=== PATIENT | female | born 1970 | race African-American/Black ===

== ENCOUNTER 2023-05-02 18:48 | Emergency (ER) | payer SELFPAY ==
[2023-05-02 18:52] VITALS: BP 138/96; PULSE 118; RESP 18; TEMP 36.7; O2SAT 95; BMI 32.5
--- NOTE | 2023-05-02 19:12 | ED.BACK1 ---
HPI - Back Pain/Injury General Chief Complaint: Back Pain/Injury Stated Complaint: BACK PAIN Time Seen by Provider: 05/02/23 18:58 Source: patient Mode of arrival: walk-in History of Present Illness HPI Narrative: Patient is a 52-year-old female who presents to the emergency department for the evaluation of back spasms over the last several days. She has a history of chronic back pain, she states she has been on tizanidine for over 20 years. She states she ran out of it 4 days ago and called her specialist for a refill but due to the holiday was not able to get the refill of this medication. She denies any new injuries, traumas. She has a history of chronic neuropathy but has no new or worsening peripheral paresthesias. She reports pain in the lumbar spine as well as in the shoulders and neck, she states this is consistent with previous muscle spasms that she has had. Related Data Previous Rx's Medication Instructions Recorded naproxen sodium 550 mg tablet 550 mg PO BID PRN pain #10 tabs 05/02/23 tizanidine 4 mg capsule 4 mg PO Q8H PRN muscle spasm #20 05/02/23 caps Allergies Allergy/AdvReac Type Severity Reaction Status Date / Time codeine Allergy Severe Verified 05/02/23 18:58 morphine Allergy Severe Verified 05/02/23 18:58 Penicillins Allergy Severe Verified 05/02/23 18:58 Review of Systems ROS Constitutional Denies: fever or chills Ears, nose, mouth, and throat Denies: throat pain Cardiovascular Denies: chest pain Gastrointestinal Denies: abdominal pain, nausea or vomiting Musculoskeletal Reports: back pain and neck pain Integumentary/Breast Denies: rash Neurological Denies: headache Endocrine Denies: excessive urination Hematologic/Lymphatic Denies: easy bruising Exam Narrative Exam Narrative: Gen.: Awake, alert, in no distress Head: Normocephalic, atraumatic ENT: Moist mucous membranes Respiratory: No respiratory distress Back: Diffuse tenderness of the lumbar spine and paraspinal muscles with no bony point tenderness of the C-spine, T-spine or L-spine. No obvious deformity or step-off. Extremities: Moves extremities equally, no injuries noted Psych: Normal mood and affect Neuro: No focal neuro deficit Skin: Warm, dry, intact Constitutional Vital Signs, click to edit/add: Last Vital Signs Temp 98.1 F 05/02/23 18:52 Pulse 118 H 05/02/23 18:52 Resp 18 05/02/23 18:52 BP 138/96 H 05/02/23 18:52 Pulse Ox 95 05/02/23 18:52 O2 Del Method Room Air 05/02/23 18:52 Course Vital Signs Vital signs: Vital Signs Temperature 98.1 F 05/02/23 18:52 Pulse Rate 118 H 05/02/23 18:52 Respiratory Rate 18 05/02/23 18:52 Blood Pressure 138/96 H 05/02/23 18:52 Pulse Oximetry 95 05/02/23 18:52 Oxygen Delivery Method Room Air 05/02/23 18:52 Temperature 98.1 F 05/02/23 18:52 Pulse Rate 118 H 05/02/23 18:52 Respiratory Rate 18 05/02/23 18:52 Blood Pressure 138/96 H 05/02/23 18:52 Pulse Oximetry 95 05/02/23 18:52 Oxygen Delivery Method Room Air 05/02/23 18:52 MDM - Back Pain/Injury MDM Narrative Medical decision making narrative: Patient with no new focal medical complaints, heart rate rechecked prior to discharge with improvement of tachycardia. She has no focal neuro deficits in the ER. She is given a refill of her tizanidine, we do not have this medication in house so she was given Skelaxin and Toradol to take at home as she drove herself to the ER. Follow-up with PCP and return to the ER if symptoms change or worsen Medical Records Attestation: I reviewed the patient's medical records. Discharge Plan Discharge Chief Complaint: Back Pain/Injury Clinical Impression: Back spasm, Lumbar back pain Patient Disposition: Home, Self-Care Time of Disposition Decision: 19:09 Condition: Good Prescriptions / Home Meds: New tizanidine 4 mg capsule 4 mg PO Q8H PRN (Reason: muscle spasm) Qty: 20 0RF Rx Instructions: do not exceed 3 doses per 24 hrs naproxen sodium 550 mg tablet 550 mg PO BID PRN (Reason: pain) Qty: 10 0RF Instructions: Acute Low Back Pain (ED), Muscle Spasm (ED) Stand Alone Forms: Portal Instructions Referrals: Physician,Non-Staff, MD [Primary Care Provider] - 1 week
[2023-05-02] MEDS: KETOROLAC TROMETHAMINE 10 MG TABLET PO (19:43)
[2023-05-02] MEDS: TIZANIDINE HCL 4 MG TABLET 8 MG PO (19:44)
== END 2023-05-02 19:48 | disposition home or self-care (01) ==
PROVIDERS: Emergency Provider Emergency Medicine
DX: M62.830 Muscle spasm of back (principal); M54.50 Low back pain, unspecified; G89.29 Other chronic pain; G62.89 Other specified polyneuropathies; Z79.899 Other long term (current) drug therapy
CPT/HCPCS: 99283

== ENCOUNTER 2024-02-12 09:17 | Emergency (ER) | payer OTHER, SELFPAY ==
[2024-02-12 09:23] VITALS: BP 156/88; PULSE 89; TEMP 36.8; O2SAT 97; BMI 35.4
--- NOTE | 2024-02-12 09:53 | ED.GENADUL1 ---
HPI HPI - General Adult General Stated complaint: JOINT PAIN, VOMITING, POSSIBLE FOOD POISON Time Seen by Provider: 02/12/24 09:38 Source: patient Mode of arrival: walk-in Limitations: no limitations History of Present Illness HPI narrative: Patient presents with Several different complaints. She describes onset of vomiting and diarrhea several days ago. She associated it with eating some [place] food. However she describes the timeframe that does not suggest food poisoning. She said within an hour of eating she went home and started getting sick. Then she had diarrhea the next day. She has not run a fever that she is aware of. She has not seen any blood in the stool. She has not had any travel history. She has not had any use of antibiotics recently. She says now her joints are starting to ache. She had a primary care doctor who worked her up for autoimmune diseases several years ago and all those testing were negative. She says she has irritable bowel syndrome but no inflammatory bowel disease that she is aware of. Has not had a colonoscopy. When I ask her which joints are bothering her she said both her elbows her wrists and knees. She says she has been told she has osteoarthritis after that previous workup. She has not seen a rheumatology doctor. She is out of all her medications. She says occasionally she takes ibuprofen but it did not seem to work. She is out of her muscle relaxants. She is looking for a new family doctor. Related Data Home Medications ?Medication ?Instructions ?Recorded ?Confirmed [id number] 1 tab PO DAILY 02/12/24 02/12/24 50 mg-325 mg-40 mg tablet trazodone 100 mg tablet 100 mg PO DAILY 02/12/24 02/12/24 Previous Rx's ?Medication ?Instructions ?Recorded naproxen sodium 550 mg tablet 550 mg PO BID PRN pain #10 tabs 05/02/23 tizanidine 4 mg capsule 4 mg PO Q8H PRN muscle spasm #20 05/02/23 caps Allergies Allergy/AdvReac Type Severity Reaction Status Date / Time codeine Allergy Severe Vomiting Verified 02/12/24 09:29 morphine Allergy Severe Hives Verified 02/12/24 09:29 Penicillins Allergy Severe Anaphylaxis Verified 02/12/24 09:29 Opioid HPI Opioid Management Most Recent Opioid Data: Last Pain Scale 8 02/12/24 09:59 PFSH PFSH Social History Little interest or pleasure in doing things: not at all Feeling down, depressed, or hopeless: not at all Exam Narrative Exam Narrative: Awake alert pleasant does not appear an extremis. Vital signs able. Prescription monitoring program was evaluated in his normal report. Examining her joints of the wrist elbow ankles shoulders there is no acute arthritis warmth erythema or skin tenderness over these areas. Her abdomen is soft and supple there is no guarding rebound rigidity or peritoneal findings. Skin and integument shows good perfusion with no evidence of tenting of the skin or dehydration. Good pulses are noted. Constitutional Vital Signs, click to edit/add: Last Vital Signs Temp 98.2 F 02/12/24 09:23 Pulse 89 02/12/24 09:23 Resp 18 02/12/24 09:23 BP 156/88 H 02/12/24 09:23 Pulse Ox 97 02/12/24 09:23 O2 Del Method Room Air 02/12/24 09:23 Course Vital Signs Vital signs: Vital Signs Temperature 98.2 F 02/12/24 09:23 Pulse Rate 89 02/12/24 09:23 Respiratory Rate 18 02/12/24 09:23 Blood Pressure 156/88 H 02/12/24 09:23 Pulse Oximetry 97 02/12/24 09:23 Oxygen Delivery Method Room Air 02/12/24 09:23 Temperature 98.2 F 02/12/24 09:23 Pulse Rate 89 02/12/24 09:23 Respiratory Rate 18 02/12/24 09:23 Blood Pressure 156/88 H 02/12/24 09:23 Pulse Oximetry 97 02/12/24 09:23 Oxygen Delivery Method Room Air 02/12/24 09:23 Medical Decision Making MDM Narrative Medical decision making narrative: Screening laboratory testing was done and lieu of her history of some diarrhea. Her kidney function is normal as is her CBC. Her CRP is very modestly elevated. These were all results will be shared with her and given her a copy for her to follow-up with her primary care doctor. It would be acceptable to use gentle and low doses of [id number] Imodium for the ongoing diarrhea. She has no history of C. difficile. I will give her a prescription for NSAIDs Discharge Plan Discharge Stand Alone Forms: Work/School Release, Portal Instructions Chief Complaint: Back Pain/Injury Clinical Impression: Osteoarthritis Patient Disposition: Home, Self-Care Time of Disposition Decision: 11:10 Prescriptions / Home Meds: No Action tizanidine 4 mg capsule 4 mg PO Q8H PRN (Reason: muscle spasm) Qty: 20 0RF Rx Instructions: do not exceed 3 doses per 24 hrs naproxen sodium 550 mg tablet 550 mg PO BID PRN (Reason: pain) Qty: 10 0RF [id number] 50-325-40 mg tablet 1 tab PO DAILY trazodone 100 mg tablet 100 mg PO DAILY Print Language: [place] Additional Instructions: Refill for meloxicam and tizanidine/follow-up with local primary care as needed Referrals: Physician,Non-Staff, MD [Primary Care Provider] - 1 week
[2024-02-12 10:29] LABS: Basophils Percent Auto 0.6 % (0.2-2.0); Eosinophils Absolute Auto 0.1 10^3/uL (0.0-0.7); Eosinophils Percent Auto 2.6 % (0.9-7.0); Hematocrit 39.9 % (36.0-48.0); Hemoglobin 12.6 g/dL (12.0-16.0); Immature Granulocytes Abs Auto 0.01 10^3/uL (0.00-0.03); Immature Granulocytes Pct Auto 0.2 % (0.0-0.5); Lymphocytes Percent Auto 39.7 % (20.5-60.0); Mean Corpuscular HGB Conc 31.6 g/dL (29.9-35.2); Mean Corpuscular Hemoglobin 25.1 pg (26.7-34.0); Mean Corpuscular Volume 79.6 fL (81.0-99.0); Mean Platelet Volume 10.3 fL (9.5-13.5); Monocytes Absolute Auto 0.4 10^3/uL (0.3-0.8); Monocytes Percent Auto 7.5 % (1.7-12.0); Neutrophils Absolute Auto 2.5 10^3/uL (1.4-6.5); Neutrophils Percent Auto 49.4 % (43.0-75.0); Platelet Count 257 10^3/uL (150-450); Red Blood Count 5.01 10^6/uL (4.20-5.40); Red Cell Distribution Width 15.9 % (11.0-15.0); White Blood Count 5.1 10^3/uL (4.0-11.0)
[2024-02-12 10:30] VITALS: BP 139/81; PULSE 81; O2SAT 97
[2024-02-12 10:41] LABS: Alanine Aminotransferase 30 U/L (14-59); Albumin Level 3.8 g/dL (3.4-5.0); Alkaline Phosphatase 87 U/L (46-116); Anion Gap 11.5; Aspartate Amino Transferase 13 U/L (15-37); BUN Creatinine Ratio 21.8; Bilirubin Total 0.2 mg/dL (0.2-1.0); C Reactive Protein 0.92 mg/dL (<=0.50); Calcium 9.5 mg/dL (8.5-10.1); Chloride 99 mmol/L (98-107); Estimated GFR (African America >60 (>=60); Estimated GFR (Non-African Ame >60 (>=60); Globulin 3.9 g/dL; Glucose 79 mg/dL (74-106); Potassium 3.5 mmol/L (3.5-5.1); Sodium 139 mmol/L (136-145); Total Protein 7.7 g/dL (6.4-8.2)
[2024-02-12 10:49] LABS: TSH W/ REFLEX FT4 1.376 uIU/mL (0.358-3.740)
== END 2024-02-12 11:18 | disposition home or self-care (01) ==
PROVIDERS: Emergency Provider Emergency Medicine Emergency Medical Services
DX: M19.90 Unspecified osteoarthritis, unspecified site (principal)
CPT/HCPCS: 36415; 80053; 84443; 85025; 86140; 99283

== ENCOUNTER 2024-07-21 18:58 | Emergency (ER) | payer OTHER, SELFPAY ==
--- OUTSIDE RECORDS SUMMARY | 2024-07-21 19:05 | XMS_ITS | CCD ---
Author Organization [facility] Care Team Providers Care Merchandise Executive Name Role Phone RAFAEL CALLAWAY Unavailable Unavailable TINJAG NUGENT Unavailable Unavailable NILTONRAFAEL Alexander S Unavailable Unavailable HAYDAR KEO Unavailable Unavailable ROSEANN SUN Admitting Unavailable SELF, REFERRED Referring Unavailable WALTON, REUBEN Primary Care Unavailable AVEL DEE Attending Unavailable Walton Tee MONTILLA Primary Care Provider WALTON, TEE Referring Unavailable WALTON, TEE Primary Care Unavailable SARANYA STAPLES Attending Unavailable SARANYA STAPLES Referring Unavailable WALTON, TEE Primary Care Unavailable WALTON, TEE Attending Unavailable WALTON, TEE Referring Unavailable WALTON, TEE Primary Care Unavailable WALTON, TEE Attending Unavailable WALTON, TEE Referring Unavailable WALTON, TEE Primary Care Unavailable Allergies Allergy Classification Reported Allergen(s) Allergy Type Date of Onset Reaction(s) Facility Opioid Agonists (2 sources) Codeine; Translations: [CODEINE] Drug Allergy 6 [facility] Penicillins (antibiotic) (2 sources) Penicillins; Translations: [PENICILLINS] Drug Allergy 6 [facility] (1 source) Acetaminophen / Propoxyphene; Translations: [Unknown] Drug Allergy 0 [facility] (1 source) Codeine Drug Allergy 9 [facility] (1 source) Codeine Drug Allergy 9 [facility] (2 sources) Meclizine; Translations: [MORPHINE] Drug Allergy 9 [facility] (2 sources) Penicillins; Translations: [PENICILLINS] Drug allergy (disorder) 9 [facility] (4 sources) Codeine; Translations: [CODEINE] Drug Allergy 6 Vomiting [facility] (4 sources) Dicloxacillin; Translations: [DICLOXACILLIN SODIUM] Drug Allergy 6 [facility] (3 sources) Morphine Drug Allergy 6 Hives [facility] (3 sources) Penicillins Propensity to adverse reactions to drug 6 Anaphylaxis [facility] Medications Current Medications Medication Drug Class(es) Dates Sig (Normalized) Sig (Original) acetaminophen 325 mg / butalbital 50 mg / caffeine 40 mg oral tablet (4 sources) Barbiturate, Central Nervous System Stimulant, Methylxanthine Start: 12-16-2023 End: 04-20-2024 take 1 tablet by mouth once in the morning butalbital-acetam inophen-caff (FIORICET, ESGIC) 50-325-40 mg per tablet Indications: Migraine with aura and without status migrainosus, not intractable Take 1 tablet by mouth in the morning. 30 tablet 2 04/20/2024 Active Start: 02-03-2023 take 1 tablet by mathieu once in the morning [id number]-gvookuknpejnm-uwed (FIORICET, ESGIC) 50-325-40 mg per tablet TAKE 1 TABLET BY MOUTH IN THE MORNING 30 tablet 2 02/03/2023 Active [id number] 200 actuat albuterol 0.09 mg/actuat metered dose inhaler (3 sources) beta2-Adrenergic Agonist Start: 12-16-2023 take 1 puff(s) by inhalation every six hours as needed for wheezing albuterol (PROVENTIL HFA;VENTOLIN HFA) 90 mcg/actuation inhaler Indications: Mild intermittent asthma without complication Inhale 1 puff every 6 (six) hours as needed for wheezing. 18 g 12/16/2023 Active Start: 03-09-2023 take 2 puff(s) by mo uth every four hours as needed for wheezing albuterol (PROVENTIL HFA;VENTOLIN HFA) 90 mcg/actuation inhaler Indications: Mild intermittent asthma without complication INHALE 2 PUFFS BY MOUTH EVERY 4 HOURS NEEDED FOR WHEEZING 18 g 0 03/09/2023 Active chlorthalidone 25 mg oral tablet (3 sources) Thiazide-like Diuretic Start: 12-16-2023 take 1 tablet by mouth once daily chlorthalidone (HYGROTON) 25 mg tablet Indications: Essential hypertension , Fibromyalgia , Chronic bilateral low back pain with bilateral sciatica Take 1 tablet (25 mg total) by mouth daily. 90 tablet 3 12/16/2023 Active Start: 01-08-2023 take 1 tablet by mathieu th once daily chlorthalidone (HYGROTON) 25 mg tablet Indications: Essential hypertension , Fibromyalgia , Chronic bilateral low back pain with bilateral sciatica Take 1 tablet (25 mg total) by mouth daily. 90 tablet 3 01/08/2023 Active fluticasone propionate 0.05 mg/actuat metered dose nasal spray (3 sources) Corticosteroid Start: 07-07-2022 take 1 spray(s) nasal route in the morning fluticasone propionate (FLONASE) 50 mcg/actuation nasal spray Administer 1 spray into each nostril in the morning. 16 g 07/07/2022 Active ibuprofen 800 mg oral tablet (3 sources) Nonsteroidal Anti-inflammatory Drug Start: 03-19-2022 take 1 tablet by mouth three times daily ibuprofen (MOTRIN) 800 mg tablet Take 1 tablet (800 mg total) by mouth 3 (three) times a day. 21 tablet 03/19/2022 Active levocetirizine dihydrochloride 5 mg oral tablet (2 sources) Histamine-1 Receptor Antagonist Start: 04-20-2024 take 1 tablet by mouth once daily levocetirizine (XYZAL) 5 mg tablet Take 1 tablet (5 mg total) by mouth nightly. 30 tablet 04/20/2024 Active meclizine hydrochloride 25 mg oral tablet (1 source) Antiemetic Start: 07-07-2022 take 1 tablet by mouth three times daily as needed for dizziness meclizine (ANTIVERT) 25 mg tablet Take 1 tablet (25 mg total) by mouth 3 (three) times a day as needed for dizziness. 20 tablet 0 07/07/2022 Active rizatriptan 10 mg oral tablet (1 source) Serotonin-1b and Serotonin-1d Receptor Agonist Start: 10-20-2019 take 1 tablet by mouth once as needed rizatriptan (MAXALT) 10 mg tablet Indications: Migraine with aura and without status migrainosus, not intractable Take 1 tablet (10 mg total) by mouth once as needed for migraine for up to 1 dose. May repeat in 2 hours if unresolved. Do not exceed 30 mg in 24 hours. 9 tablet 2 10/20/2019 Active tiZANidine 4 mg oral tablet (4 sources) Central alpha-2 Adrenergic Agonist Start: 06-04-2024 take 1 tablet by mouth every eight hours as needed for muscle spasms tiZANidine (ZANAFLEX) 4 mg tablet Indications: Fibromyalgia Take 1 tablet (4 mg total) by mouth every 8 (eight) hours as needed for muscle spasms. 90 tablet 2 06/04/2024 Active Start: 02-12-2024 End: 06-03-2024 take 1 tablet by mouth every eight hours as needed for muscle spasms tiZANidine (ZANAFLEX) 4 mg tablet Indications: Fibromyalgia Take 1 tablet (4 mg total) by mouth every 8 (eight) hours as needed for muscle spasms. 90 tablet 2 02/12/2024 06/03/2024 Discontinued (Reorder) Start: 04-29-2023 take 1 tablet by mathieu th every eight hours as needed for muscle spasms tiZANidine (ZANAFLEX) 4 mg tablet Indications: Fibromyalgia Take 1 tablet (4 mg total) by mouth every 8 (eight) hours as needed for muscle spasms. 90 tablet 3 04/29/2023 Active traZODone hydrochloride 100 mg oral tablet (7 sources) Serotonin Reuptake Inhibitor Start: 07-27-2023 End: 04-20-2024 traZODone (DESYREL) 100 mg tablet TAKE ONE HALF TABLET BY MOUTH EVERY EVENING 90 tablet 2 04/20/2024 Active Start: 01-08-2023 End: 07-24-2023 traZODone (DESYREL) 100 mg t ablet TAKE ONE HALF TABLET BY MOUTH EVERY EVENING 90 tablet 1 07/24/2023 07/24/2023 Discontinued Completed/Discontinued Medications Medication Drug Class(es) Dates Sig (Normalized) Sig (Original) doxycycline monohydrate 100 mg oral capsule (3 sources) Tetracycline-cla ss Drug Start: 04-20-2024 End: 04-30-2024 take 1 capsule by mouth in the morning, then take 1 capsule by mouth at bedtime doxycycline (MONODOX) 100 mg capsule Take 1 capsule (100 mg total) by mouth in the morning and 1 capsule (100 mg total) before bedtime. Do all this for 10 days. 20 capsule 04/20/2024 04/20/2024 Discontinued Problems Active Problems Problem Classification Problem Date Documented Da te Episodic/Chronic Anxiety disorders (7 sources) Generalized anxiety disorder; Translations: [Generalized anxiety disorder] Onset: 0 10-20-2019 Chronic Asthma (5 sources) Exacerbation of moderate persistent asthma; Translations: [Moderate persistent asthma with (acute) exacerbation] Onset: 6 01-15-2018 Chronic Esophageal disorders (3 sources) Gastroesophageal reflux disease; Translations: [Gastro-esophageal reflux disease without esophagitis] Onset: 6 08-07-2015 Chronic Essential hypertension (8 sources) Essential hypertension; Translations: [Essential (primary) hypertension] Onset: 6 Resolved: 6 09-10-2015 Chronic Fever of unknown origin (1 source) Fever Onset: 4 Episodic Headache; including migraine (11 sources) Migraine with aura; Translations: [Migraine with aura, not intractable, without status migrainosus] Onset: 6 Resolved: 0 10-20-2019 Chronic Nutritional deficiencies (1 source) Vitamin D deficiency, unspecified; Translations: [Vitamin D deficiency, unspecified] Onset: 4 Chronic Open wounds of extremities (1 source) Puncture wound without foreign body, left foot, initial encounter; Translations: [Puncture wound without foreign body, left foot, initial encounter] Onset: 4 Episodic Osteoarthritis (3 sources) Generalized arthritis; Translations: [Unspecified osteoarthritis, unspecified site] Onset: 6 01-20-2017 Chronic Other connective tissue disease (4 sources) Fibromyalgia; Translations: [Fibromyalgia] Onset: 6 08-07-2015 Episodic Other connective tissue disease (1 source) Calcaneal spur, left foot; Translations: [Calcaneal spur, left foot] Onset: 4 Episodic Other gastrointestinal disorders (3 sources) Irritable bowel syndrome; Translations: [Irritable bowel syndrome without diarrhea] Onset: 6 08-07-2015 Chronic Other inflammatory condition of skin (3 sources) Rosacea; Translations: [Rosacea, unspecified] Onset: 6 03-11-2016 Chronic Other lower respiratory disease (1 source) Cough Onset: 4 Episodic Other nervous system disorders (1 source) Other chronic pain; Translations: [Other chronic pain] Onset: 8 Chronic Other nervous system disorders (3 sources) Peripheral neuropathic pain; Translations: [Unspecified mononeuropathy of bilateral lower limbs] Onset: 7 01-20-2017 Chronic Other nervous system disorders (3 sources) Neuropathy of upper limb; Translations: [Unspecified mononeuropathy of unspecified upper limb] Onset: 7 01-20-2017 Chronic Other nervous system disorders (1 source) Unspecified mononeuropathy of bilateral lower limbs; Translations: [Unspecified mononeuropathy of bilateral lower limbs] Onset: 7 Chronic Other nutritional; endocrine; and metabolic disorders (1 source) Obesity caused by energy imbalance; Translations: [Other obesity due to excess calories] Onset: 1 01-14-2021 Chronic Other nutritional; endocrine; and metabolic disorders (2 sources) Severe obesity; Translations: [Class 2 severe obesity due to excess calories with serious comorbidity and body mass index (BMI) of 35.0 to 35.9 in adult] Onset: 1 09-29-2023 Chronic Other upper respiratory disease (3 sources) Allergic rhinitis; Translations: [Allergic rhinitis, unspecified] Onset: 6 08-07-2015 Chronic Other upper respiratory disease (1 source) Other specified disorders of nose and nasal sinuses; Translations: [Other specified disorders of nose and nasal sinuses] Onset: 8 Episodic Other upper respiratory disease (1 source) Pain in throat Onset: 4 Episodic Other upper respiratory infections (2 sources) Acute pharyngitis, unspecified; Translations: [Acute maxillary sinusitis] Onset: 8 05-07-2024 Episodic Unclassified (1 source) Other specified disorders of teeth and supporting structures; Translations: [Other specified disorders of teeth and supporting structures] Onset: 8 Unclassified (1 source) Nail in Heel Onset: 4 Unclassified (1 source) Earache Onset: 4 Past or Other Problems Problem Classification Problem Date Documented Da te Episodic/Chronic Mood disorders (3 sources) Mood disorders Onset: 02-20-2023 Resolved: 09-29-2023 02-20-2023 Nonspecific chest pain (3 sources) Atypical chest pain; Translations: [Other chest pain] Onset: 01-15-2018 Resolved: 05-21-2018 05-21-2018 Episodic Other connective tissue disease (3 sources) Impingement syndrome of right shoulder region; Translations: [Impingement syndrome of right shoulder] Onset: 11-16-2017 11-16-2017 Episodic Other nervous system disorders (3 sources) H/O: migraine; Translations: [Personal history of other diseases of the nervous system and sense organs] Onset: 08-07-2015 Resolved: 09-10-2015 09-10-2015 Episodic Other screening for suspected conditions (not mental disorders or infectious disease) (5 sources) Patient encounter status; Translations: [Encounter for screening mammogram for malignant neoplasm of breast] Onset: 08-09-2015 05-18-2017 Episodic Spondylosis; intervertebral disc disorders; other back problems (11 sources) Lumbago with sciatica, unspecified side; Translations: [Spinal stenosis] Onset: 08-07-2015 08-07-2015 Episodic Sprains and strains (3 sources) Strain of muscle(s) and tendon(s) of the rotator cuff of right shoulder, initial encounter; Translations: [Rotator cuff (capsule) sprain] Onset: 08-18-2022 08-18-2022 Episodic Syncope (3 sources) Syncope; Translations: [Syncope and collapse] Onset: 01-02-2018 01-02-2018 Episodic Unclassified (3 sources) Onset: 08-18-2022 08-18-2022 Results Test Name Value Interpretation Reference Range Facility XR FOOT LT MIN 3 VWSon 11-23 XR FOOT LT MIN 3 VWS XR FOOT LT MIN 3 VW S HISTORY: A 53-year-old female with the history of the stepped on nail one week ago. Complaining of the pain to the left heel. TECHNIQUE: Left foot: 3 views COMPARISON: No relevant prior studies are available for comparison. FINDINGS: There is no evidence of fracture or acute bony pathology. No dislocation is identified. Joints are intact. There is a calcaneal enthesophyte. No radiopaque foreign body is identified. IMPRESSION: * No evidence of fracture, radiopaque foreign body or acute bony pathology in the left foot. * Calcaneal enthesophyte. Finalized by Johnny Walton MD on 11/24/2023 4:16 PM Normal [facility] BASIC METABOLIC PANELon 11-06 Anion gap [Moles/Vol] 7 mmol/L Normal - [facility] Comment on above: Performed By: #### L [id number] #### [place] [address] [place] [phone] BASIC METABOLIC PANEL Normal [facility] Comment on above: Result Comment: Rele ase to patient->Immediate Performed By: #### L [id number] #### [facility] [facility] [address] [place] [phone] Calcium [Mass/Vol] 10.1 mg/dL Normal 8.6-10.2 [facility] Comment on above: Performed By: #### L AB15 #### [place] [id number] [place] [phone] Chloride [Moles/Vol] 102 mmol/L Normal 98-107 [facility] Comment on above: Performed By: #### L AB15 #### [place] [id number] [phone] CO2 [Moles/Vol] 30 mmol/L Normal 21-31 [facility] Comment on above: Performed By: #### L AB15 #### [address] [place] [address] Creatinine [Mass/Vol] 0.9 mg/dL Normal 0.6-1.2 [facility] Comment on above: Performed By: #### L AB15 #### [place] [address] [place] [address] GFR MDRD NON AF AMER >60 Normal >60 [facility] Comment on above: Result Comment: GFR is estimated using creatinine, age, gender, and race. Patient's values should be interpreted as a trend. For additional information: [email or web address] Performed By: #### L AB15 #### [place] [facility] [address] [place] [address] GFR/1.73 sq M.predicted among blacks MDRD (S/P/Bld) [Vol rate/Area] mL/min/{1.73_m2} Normal >60 [facility] Comment on above: Result Comment: GFR is estimated using creatinine, age, gender, and race. Patient's values should be interpreted as a trend. For additional information: [email or web address] Performed By: #### L AB15 #### [place] [address] [place] [address] Glucose [Mass/Vol] 84 mg/dL Normal 74-109 [facility] Comment on above: Performed By: #### L AB15 #### [place] [address] [place] [address] [place] [address] Potassium [Moles/Vol] 3.9 mmol/L Normal 3.5-5.3 [facility] Comment on above: Performed By: #### L AB15 #### [place] [address] [place] [phone] Sodium [Moles/Vol] 139 mmol/L Normal 136-145 [facility] Comment on above: Performed By: #### L AB15 #### [place] [address] [place] [phone] Urea nitrogen [Mass/Vol] 20 mg/dL Normal 7-25 [facility] Comment on above: Performed By: #### L AB15 #### [place] [address] [place] [address] CBC W/DIFFon 11-22-2020 BASOPHILS ABS AUTO 0.1 K/uL Normal 0.0-0.1 [facility] Comment on above: Performed By: #### L [id number] #### [place] [address] [place] [address] Basophils/100 WBC (Bld) 1.1 % Normal [facility] Comment on above: Performed By: #### L [id number] #### [place] [address] [place] [phone] CBC W/DIFF Normal [facility] Comment on above: Result Comment: Rele ase to patient->Immediate Performed By: #### L [id number] #### [place] [address] [place] [phone] Eosinophils (Bld) [#/Vol] 0.2 10*3/uL Normal 0.0-0.4 [facility] Comment on above: Performed By: #### L [id number] #### [place] [address] [place] [phone] Eosinophils/100 WBC (Bld) 2.9 % Normal [facility] Comment on above: Performed By: #### L [id number] #### [place] [address] [place] [phone] Erythrocyte distribution width (RBC) [Ratio] 15.1 % Normal 11.7-15.2 [facility] Comment on above: Performed By: #### L [id number] #### [place] [address] [place] [phone] Hematocrit (Bld) [Volume fraction] 37.0 % Normal 35.8-46.5 [facility] Comment on above: Performed By: #### L [id number] #### [place] [address] [place] [phone] Hemoglobin (Bld) [Mass/Vol] 12.2 g/dL Normal 12.1-15.8 [facility] Comment on above: Performed By: #### L [id number] #### [place] [address] [place] [address] Lymphocytes (Bld) [#/Vol] 2.0 10*3/uL Normal 0.8-3.6 [facility] Comment on above: Performed By: #### L [id number] #### [place] [address] [place] [phone] Lymphocytes/100 WBC (Bld) 37.6 % Normal [facility] Comment on above: Performed By: #### L [id number] #### [place] [address] [place] [address] MCH (RBC) [Entitic mass] 25.7 pg Abnormal 28.4-33.4 [facility] Comment on above: Performed By: #### L [id number] #### [place] [address] [place] [address] MCHC (RBC) [Mass/Vol] 33.1 g/dL Normal 31.1-37.0 [facility] Comment on above: Performed By: #### L [id number] #### [place] [address] [place] [address] MCV (RBC) [Entitic vol] 77.6 fL Abnormal 85.0-99.0 [facility] Comment on above: Performed By: #### L [id number] #### [place] [address] [place] [address] Monocytes (Bld) [#/Vol] 0.3 10*3/uL Normal 0.3-0.9 [facility] Comment on above: Performed By: #### L [id number] #### [place] [address] [place] [phone] Monocytes/100 WBC (Bld) 6.4 % Normal [facility] Comment on above: Performed By: #### L [id number] #### [place] [address] [place] [phone] NEUTROPHIL ABS AUTO 2.8 K/uL Normal 2.0-7.3 [facility] Comment on above: Performed By: #### L [id number] #### [place] [address] [place] [phone] Neutrophils/100 WBC (Bld) 52.0 % Normal [facility] Comment on above: Performed By: #### L [id number] #### [place] [address] [place] [phone] Platelets (Bld) [#/Vol] 264 10*3/uL Normal 154-393 [facility] Comment on above: Performed By: #### L [id number] #### [place] [address] [place] [address] RBC (Bld) [#/Vol] 4.77 10*6/uL Normal 3.86-5.17 [facility] Comment on above: Performed By: #### L [id number] #### [place] [id number] [phone] WBC (Bld) [#/Vol] 5.4 10*3/uL Normal 4.0-10.5 [facility] Comment on above: Performed By: #### L [id number] #### [place] [address] [place] [phone] ED Provider Noteson 11-23-19 21 ED Provider Notes Encounter Department : [facility]: EMER[facility] ED Provider Notes by Gilson Squires MD at 11/22/2020 2:18 PM Author: SHARON Leervice: Emergency MedicineAuthor Type: ED Physician Filed: 11/22/2020 4:02 PMDate of Service: 11/22/2020 2:18 PMStatus: Signed Offal Baler: Gilson Squires MD (ED Physician) CHIEF COMPLAINT History given by: Patient, chart review, nursing staff History limited by: None Chief Complaint Patient presents with -Chest Pain -Shortness of Breath -Eye Pain YOUSUF Kelly Mccarthy is a 50 y.o. female with possible history of asthma, fibromyalgia, mitral prolapse who presents July with complaint of chest pain. Patient is about 10 AM she was driving in her car just leaving a job interview when she started to feel some pain behind her right eye as well as chest pain. Chest pain is sternal, aching, nonradiating. Mild shortness of breath. Pain is more of a headache located behind the right eye. Denies pain with moving the eye. Denies eye drainage. Denies blurry vision. Does not think she had a stress test. Pain in her right eye slightly better than previous. Has not taken anything for it. Chest pain is about the same. Is also noticed a little bit of lower extremity edema for the last 3 days. Nothing seems to make her symptoms better or worse. Denies nausea vomiting or diaphoresis REVIEW OF SYSTEMS Constitutional: No fever or chills. Eye: No visual changes HENT: No ear pain or sore throat. Positive for pain behind the right eye Resp: Positive shortness of breath Cardio: Positive for chest pain GI: No abdominal pain, nausea, vomiting, constipation or diarrhea. : No dysuria, urgency or frequency. Musculoskeletal: No new muscle aches or joint pain. Positive lower extremity edema Neuro: Positive for headache Skin: No rash. PAST MEDICAL HISTORY Past Medical History: DiagnosisDate -Asthma -Disc disease, degenerative, lumbar or lumbosacral -Fibromyalgia -Mitral prolapse -Osteoarthritis FAMILY HISTORY No family history on file. SOCIAL HISTORY Social History Socioeconomic History -Marital status: Spouse name:None -Number of children:None -Years of education:None -Highest education level:None Occupational History -None Tobacco Use -Smoking status:Never Smoker -Smokeless tobacco:Never Used Substance and Sexual Activity -Alcohol use:Never -Drug use:Never -Sexual activity:None Other TopicsConcern -None Social History Narrative -None Social Determinants of Health Financial Resource Strain: -Difficulty of Paying Living Expenses: Food Insecurity: -Worried About Running Out of Food in the Last Year: -Ran Out of Food in the Last Year: Transportation Needs: -Lack of Transportation (Medical): -Lack of Transportation (Non-Medical): Physical Activity: -Days of Exercise per Week: -Minutes of Exercise per Session: Stress: -Feeling of Stress : Social Connections: -Frequency of Communication with Friends and Family: -Frequency of Social Gatherings with Friends and Family: -Attends [employer] Services: -Active Member of Clubs or Organizations: -Attends Club or Organization Meetings: -Marital Status: Intimate Partner Violence: -Fear of Current or Ex-Partner: -Emotionally Abused: -Physically Abused: -Sexually Abused: SURGICAL HISTORY Past Surgical History: ProcedureLateralityDat e -CHOLECYSTECTOMY -HYSTERECTOMY CURRENT MEDICATIONS Outpatient Medications Marked as Taking for the 11/22/20 encounter (Hospital Encounter) MedicationSigDispenseR efill -hydroCHLOROthiazide (HYDRODIURIL) 25 mg tabletTake 25 mg by mouth daily. -meloxicam (MOBIC) 15 mg tabletTake 15 mg by mouth daily. -sulfamethoxazole-trim ethoprim (SULFATRIM) 200-40 mg/5 mL suspensionTake 20 mLs by mouth 2 times a day. dose in mg based on trimethoprim content -tiZANidine (ZANAFLEX) 4 mg tabletTake 4 mg by mouth every 6 hours as needed for Muscle spasms. -traZODone (DESYREL) 100 mg tabletTake 100 mg by mouth at bedtime. ALLERGIES Allergies AllergenReactions -PenicillinsAnaphylaxi s -CodeineGI Upset -Opioids - Morphine AnaloguesHives PHYSICAL EXAM VITAL SIGNS: ED Triage Vitals [11/22/20 1158] BP150/74 Temp98.4 ?F (36.9 ?C) Pulse74 Resp15 [id number] % [id number] lb (81.6 kg) Joyce Coma Scale Score15 BMI (Calculated)32 Constitutional: Well developed, Well nourished, mild distress. HENT: Normocephalic, Atraumatic, Bilateral external ears normal, Oropharynx moist, No oral exudates, Nose normal without discharge. Eyes: PERRL, EOMI, Conjunctiva normal, No discharge. No scleral icterus. Neck: Normal range of motion, No tenderness, Supple. Lymphatic: No lymphadenopathy noted. Cardiovascular: Normal heart rate, Normal rhythm, No murmurs, rubs or gallops. Thorax AND Lungs: Normal breath sounds, No respiratory distress. No use of accessory muscles. Abdomen: Soft, non-tender, non- (more content not included)... Normal [facility] EKG STANDARD 12 LEADon 11-22 EKG STANDARD 12 LEAD HEART RATE= 82 bpm RR Interval= 728 ms P-R Interval= 163 ms QRSD Interval= 81 ms QT Interval= 389 ms QTcB= 456 ms QRS Bromide= 20 deg T Wave Bromide= 42 deg REPORT= - BORDERLINE ECG - REPORT= Sinus rhythm REPORT= Probable left atrial enlargement INTERPRETING PHYS= Confirmed by: Gilson Squires) 22-Nov-2020 14:18:20 Study Date/Time= Date and Time of Study: 2020-11-22 12:11:21 Normal [facility] TROPONIN Ion 11-22-2020 TROPONIN I Normal [facility] Comment on above: Result Comment: Rele ase to patient->Immediate Performed By: #### L [id number] #### [place] [address] Troponin I.cardiac [Mass/Vol] ng/mL Normal <0.040 [facility] Comment on above: Result Comment: Due to new chemistry methodology at some [facility] labs, please re-baseline this test for any patients being transferred from a different location. Performed By: #### L [id number] #### [place] [address] XR-CHEST PORTABLE Aida XR-CHEST PORTABLE STAT EXAMINATION: XR-CHEST PORTABLE STAT DATE OF EXAM: 11/22/2020 2:18 PM DEMOGRAPHICS: 50 years old Female INDICATION: Chest Pain History: Chest pains and swelling. Number of Series/Images: 1. COMPARISON: No existing relevant imaging study corresponding to the same anatomical region is available. TECHNIQUE: Single AP portable chest radiograph was obtained. FINDINGS: Cardiomediastinal silhouette and pulmonary vasculature are within normal limits. Mild right basilar atelectatic changes. Remainder of the visualized lungs are clear and well-aerated. The costophrenic angles are sharp. There is no evidence of a pleural effusion or pneumothorax. There is no acute osseous abnormality. IMPRESSION: IMPRESSION: 1. No acute cardiopulmonary disease This dictation was created with voice recognition software. While attempts have been made to review the dictation as it is transcribed, on occasion the spoken word can be misinterpreted by the technology leading to omissions or inappropriate words, phrases or sentences. Electronically Signed by: Lissa Dallas, 11/22/2020 2:20 PM Normal [facility] ALCOHOLon 03-04-2020 Ethanol [Mass/Vol] NONE DETECTED Normal [facility] Comment on above: Result Comment: Divi de by 1000 to convert mg/dL to percent. Example: 100mg/dL = 0.1%. Performed By: #### 2 0621 #### [facility] [address] [place] [address], [place] CBC W/DIFFon 03-04-2020 ABS BASOPHILS 0.0 10*3/uL Normal 0.0-0.2 [facility] Comment on above: Performed By: #### 5 0103 #### [facility] [address] [facility] [place] [address], [place] ABS IMM GRANS 0.0 10*3/uL Normal 0.0-0.2 [facility] Comment on above: Performed By: #### 5 0103 #### [facility] [address] [place] [address], [place] ABS NEUTROPHILS 3.1 10*3/uL Normal 1.6-7.6 [facility] Comment on above: Performed By: #### 5 0103 #### [facility] [address] [facility] [place] [address], [place] Basophils/100 WBC (Bld) 0.5 % Normal 0.0-1.0 [facility] Comment on above: Performed By: #### 5 0103 #### [facility] [address] [place] [address], [place] Eosinophils (Bld) [#/Vol] 0.2 10*3/uL Normal 0.0-0.5 [facility] Comment on above: Performed By: #### 5 0103 #### [facility] [address] [facility] [place] [address], [place] Eosinophils/100 WBC (Bld) 2.4 % Normal 0.0-6.0 [facility] Comment on above: Performed By: #### 5 0103 #### [facility] [address] [place] [address], [place] Erythrocyte distribution width (RBC) [Ratio] 14.9 % Normal 11.5-15.0 [facility] Comment on above: Performed By: #### 5 0103 #### [facility] [address] [place] [address], [place] Hematocrit (Bld) [Volume fraction] 31.4 % Low 36.0-45.0 [facility] Comment on above: Performed By: #### 5 3 #### [facility] [address] [facility] [place] [address], [place] Hemoglobin (Bld) [Mass/Vol] 10.1 g/dL Low 12.0-15.0 [facility] Comment on above: Performed By: #### 5 3 #### [facility] [address] [facility] [place] [address], [place] IMMATURE GRANS 0.5 % Normal 0.0-1.0 [facility] Comment on above: Performed By: #### 5 3 #### [facility] [address] [facility] [place] [address], [place] Lymphocytes (Bld) [#/Vol] 2.4 10*3/uL Normal 1.2-4.0 [facility] Comment on above: Performed By: #### 5 3 #### [facility] [address] [facility] [place] [address], [place] Lymphocytes/100 WBC (Bld) 38.9 % Normal 20.0-45.0 [facility] Comment on above: Performed By: #### 5 0103 #### [facility] [address] [facility] [place] [address], [place] MCH (RBC) [Entitic mass] 25.5 pg Low 27.0-33.0 [facility] Comment on above: Performed By: #### 5 3 #### [facility] [address] [place] [address], [place] MCHC (RBC) [Mass/Vol] 32.2 g/dL Normal 32.0-35.0 [facility] Comment on above: Performed By: #### 3 #### [facility] [address] [facility] [place] [address], [place] MCV (RBC) [Entitic vol] 79.3 fL Low 82.0-98.0 [facility] Comment on above: Performed By: #### 102 #### [facility] [address] [place] [address], [place] Monocytes (Bld) [#/Vol] 0.5 10*3/uL Normal 0.1-1.0 [facility] Comment on above: Performed By: #### 102 #### [facility] [address] [place] [address], [place] MONOS 7.3 % Normal 5.0-12.0 [facility] Comment on above: Performed By: #### 102 #### [facility] [address] Neutrophils/100 WBC (Bld) 50.4 % Normal 40.0-72.0 [facility] Comment on above: Performed By: #### 102 #### [facility] [address] Nucleated RBC/100 WBC (Bld) [Ratio] 0 % Normal 0-0 [facility] Comment on above: Performed By: #### 102 #### [facility] [address] [place] [address], [place] PLAT CNT 234 10*3/uL Normal 150-400 [facility] Comment on above: Performed By: #### 102 #### [facility] [address] [place] [address], [place] RBC (Bld) [#/Vol] 3.96 10*6/uL Normal 3.80-5.00 [facility] Comment on above: Performed By: #### 102 #### [facility] [address] [facility] WBC (Bld) [#/Vol] 6.14 10*3/uL Normal 4.00-10.60 [facility] Comment on above: Performed By: #### 5 0103 #### [facility] [address] [facility] [place] [address], [place] COMP METABOLIC PANELon 03-04 Albumin [Mass/Vol] 3.7 g/dL Normal 3.5-5.7 The [facility] Comment on above: Performed By: #### 0 0121, 84556 #### [facility] [address] [place] [address], [place] ALKALINE PHOSPH 59 IU/L Normal 34-104 The [facility] Comment on above: Performed By: #### 0 0121, 07165 #### [facility] [address] [facility] ALT [Catalytic activity/Vol] 12 U/L Normal 7-52 [facility] Comment on above: Performed By: #### 0 0121, 96485 #### [facility] [address] AST [Catalytic activity/Vol] 15 U/L Normal 13-39 [facility] Comment on above: Performed By: #### 0 0121, 86427 #### [facility] [address] [place] [address], [place] Bilirubin [Mass/Vol] 0.2 mg/dL Low 0.3-1.0 [facility] Comment on above: Performed By: #### 0 0121, 72209 #### [facility] [address] [place] [address], [place] Calcium [Mass/Vol] 8.8 mg/dL Normal 8.6-10.3 [facility] Comment on above: Performed By: #### 0 0121, 08196 #### [facility] [address] [place] [address], [place] Chloride [Moles/Vol] 105 mmol/L Normal 98-107 [facility] Comment on above: Performed By: #### 0 0121, 15322 #### [facility] [address] [place] [address], [place] CO2 [Moles/Vol] 26 mmol/L Normal 21-31 [facility] Comment on above: Performed By: #### 0 0121, 64075 #### [facility] [address] [place] [address], [place] Creatinine [Mass/Vol] 1.36 mg/dL High 0.60-1.20 [facility] Comment on above: Performed By: #### 0 0121, 18668 #### [facility] [address] [place] [address], [place] GFR/1.73 sq M predicted among blacks MDRD (S/P/Bld) [Vol rate/Area] 50 ml/min/1.73sq m Abnormal >60 [facility] Comment on above: Performed By: #### 0 0121, 18279 #### [facility] [address] [place] [address], [place] GFR/1.73 sq M predicted among non-blacks MDRD (S/P/Bld) [Vol rate/Area] 41 ml/min/1.73sq m Abnormal >60 [facility] Comment on above: Performed By: #### 0 0121, 03007 #### [facility] [address] [place] [address], [place] Glucose [Mass/Vol] 111 mg/dL High 70-100 [facility] Comment on above: Performed By: #### 0 0121, 37401 #### [facility] [address] [place] [address], [place] Potassium [Moles/Vol] 3.0 mmol/L Low 3.5-5.1 [facility] Comment on above: Performed By: #### 0 0121, 32237 #### [facility] [address] [place] [address], [place] Protein [Mass/Vol] 6.2 g/dL Normal 6.0-8.3 [facility] Comment on above: Performed By: #### 0 0121, 40835 #### [facility] [address] [place] [address], [place] Sodium [Moles/Vol] 139 mmol/L Normal 136-145 [facility] Comment on above: Performed By: #### 0 0121, 26385 #### [facility] [address] [place] [address], [place] Urea nitrogen [Mass/Vol] 24 mg/dL Normal 7-25 [facility] Comment on above: Performed By: #### 0 0121, 09536 #### [facility] [address] [place] [address], [place] ED TOX PANEL URINEon 020 50 THC Negative Normal NEGATIVE [facility] Comment on above: Performed By: #### 3 1763 #### [facility] [address] [place] [address], [place] BARBITURATES Negative Normal NEGATIVE The [facility] Comment on above: Performed By: #### 3 1763 #### [facility] [address] [place] [address], [place] Benzodiazepines Ql (U) Negative Normal NEGATIVE [facility] Comment on above: Performed By: #### 3 1763 #### [facility] [address] [place] [address], [place] Cocaine Ql (U) Negative Normal NEGATIVE [facility] Comment on above: Performed By: #### 3 1763 #### [facility] [address] [facility] [place] [address], [place] Methadone Ql (U) Negative Normal NEGATIVE [facility] Comment on above: Performed By: #### 3 1763 #### [facility] [address] [place] [address], [place] MONO AMPHET Negative Normal NEGATIVE [facility] Comment on above: Performed By: #### 3 1763 #### [facility] [address] [facility] [place] [address], [place] Opiates Ql (U) Negative Normal NEGATIVE [facility] Comment on above: Performed By: #### 3 1763 #### [facility] [address] [place] [address], [place] Phencyclidine Ql (U) Negative Normal NEGATIVE [facility] Comment on above: Performed By: #### 3 1763 #### [facility] [address] [place] [address], [place] PROPOXYPHENE Negative Normal NEGATIVE [facility] Comment on above: Performed By: #### 3 1763 #### [facility] [address] [place] [address], [place] TRICYCLICS Negative Normal NEGATIVE [facility] Comment on above: Performed By: #### 3 1763 #### [facility] [address] [place] [address], [place] PORTABLE CHEST 1 VIEWon 02-07 PORTABLE CHEST 1 VIEW [facility] Department of Radiology [address] [place] [id number] ======== Patient Name: SHARI FRASER : 1970 Sex: F Age: Race: Black Pt. Location: [facility] Patient Status: E Ordered Date: 03/04/2020 1:00:00 AM Completed Date: 03/04/2020 01:39 AM Requesting Provider: AVEL DEE Attending Provider: ROSEANN SUN Report Copy To: Signs & Symptoms: Chest Pain History: See Comments Comments: evaluate for Cardiomegaly Exam: PORTABLE CHEST 1 VIEW ======== PORTABLE CHEST 1 VIEW 03/04/2020 1:39 AM CLINICAL INDICATIONS: Chest Pain TECHNOLOGIST COMMENTS: patient c/o intermittent chest pain QUESTION FOR THE RADIOLOGIST: evaluate for Cardiomegaly PROTOCOL: AP(PA) view was obtained. COMPARISON: Chest x-ray on 11/15/2011 FINDINGS: Portable AP upright view of the chest was performed. Cardiac silhouette is within normal limits. Mild vascular congestion. Low lung volumes. No significant airspace consolidation, pleural effusion or pneumothorax. IMPRESSION: Mild vascular congestion. Electronically signed: Ryder Guerrier. Transcribed by: [email or web address], User Resident: Electronically Signed by: RYDER GUERRIER @ 03/04/2020 01:49 AM Normal [facility] Comment on above: Order Comment: evalu ate for Cardiomegaly TROPONIN-Ion 03-04-2020 Troponin I.cardiac [Mass/Vol] 0.00 ng/mL Normal 0.00-0.04 [facility] Comment on above: Result Comment: REFE RENCE RANGES: 0.00 - 0.14 ng/ml NEGATIVE 0.15 - 0.25 ng/ml INDETERMINATE > 0.25 ng/ml INDICATIVE OF AN M.I. Performed By: #### 3 5200 #### [place] [address] [place] [address], [place] Troponin I.cardiac [Mass/Vol] 0.01 ng/mL Normal 0.00-0.04 [facility] Comment on above: Result Comment: REFE RENCE RANGES: 0.00 - 0.04 ng/ml NORMAL 0.05 - 0.50 ng/ml INDETERMINATE > 0.50 ng/ml CONSISTENT WITH AN M.I. Performed By: #### 0 0121, 68799 #### [facility] [address] Vital Signs Date Time Vital Sign Value Performing Clinician Facility 04-20-2024 10:36-0500 Body mass index (BMI) [Ratio] 35.88 kg/m2 Tee Walton MD Work Phone: [facility] 04-20-2024 10:36-0500 Body temperature 98.29 [degF] Tee Walton MD Work Phone: [facility] 04-20-2024 10:36-0500 Body weight 91.17 kg Tee Walton MD Work Phone: [facility] 04-20-2024 10:36-0500 Diastolic blood pressure 92 mm[Hg] Tee Walton MD Work Phone: [facility] 04-20-2024 10:36-0500 Respiratory rate 21 /min Tee aWlton MD Work Phone: [facility] 04-20-2024 10:36-0500 SaO2% (BldA) [Mass fraction] 98 % Tee Walton MD Work Phone: [facility] 04-20-2024 10:36-0500 Systolic blood pressure 144 mm[Hg] Tee Walton MD Work Phone: [facility] Encounters Encounter Date Encounter Type Care Provider Facility Start: 06-03-2024 End: 06-04-2024 Refill Kirstin Wiggins [facility] [place] [facility] Comment on above: Fibromyalgia Start: 04-20-2024 End: 04-20-2024 Office outpatient visit 15 minutes Tee Walton MD Work Phone: [facility] [place] [facility] Comment on above: Migraine with aura a nd without status migrainosus, not intractable (Primary Dx); Acute non-recurrent maxillary sinusitis; Moderate persistent asthma without complication; Essential hypertension; Chronic bilateral low back pain with bilateral sciatica Start: 04-20-2024 End: 04-20-2024 ambulatory [facility] Start: 11-24-2023 End: 11-24-2023 ambulatory [facility] Start: 09-29-2023 End: 09-29-2023 ambulatory [facility] Start: 09-29-2023 Encounter for genera l adult medical examination without abnormal findings [facility] Start: 07-23-2023 Refill Kirstin Wiggins [facility] [place] [facility] Start: 03-04-2020 End: 03-04-2020 Emergency department patient visit ROSEANN Nj CORINNE Facility:[facility] Start: 02-06-2018 End: 02-06-2018 Emergency department patient visit [facility] Start: 10-20-2017 End: 10-20-2017 Emergency department patient visit [facility] Start: 03-11-2016 End: 01-14-2021 Patient encounter status Kirstin Wiggins [facility] Procedures Date Procedure Procedure Detail Performing Clinician Start: 09-29-2023 Follow-up visit Follow-up TEE BURNS Start: 09-29-2023 Adult depression scr eening assessment Tee Walton MD Work Phone: Start: 02-20-2023 Adult depression scr eening assessment Kirstin Wiggins CMA Start: 02-12-2018 Mammography Kirstin dewitt CMA Plan of Treatment Date Care Activity Detail Author Start: 11-23-2033 DTaP,Tdap and Td Vaccines (3 - Td or Tdap) DTaP,Tdap and Td Vaccines (3 - Td or Tdap) [facility] Start: 04-20-2025 Adult BMI Screening Adult BMI Screening [facility] Start: 04-20-2025 Tobacco Screening Tobacco Screening [facility] Start: 09-28-2024 Depression Screening Depression Screening [facility] Start: 06-13-2024 End: 06-13-2024 Patient encounter procedure 06/13/2024 1:00 PM EST Office Visit [facility] [place] [facility] [address] [facility] [place] [id number] [place] [address] [place] [address], [address] [place] [address] [facility] [place] [facility] Start: 03-23-2024 Tobacco Screening Tobacco Screening [facility] Start: 02-21-2024 Adult BMI Screening Adult BMI Screening [facility] Start: 02-21-2024 Depression Screening Depression Screening [facility] Start: 02-07-2024 Influenza vaccination Influenza Vaccine [facility] Start: 08-21-2023 End: 08-21-2023 Patient encounter procedure 08/21/2023 11:30 AM EDT Office Visit [facility] [place] [facility] [address] [facility] [place] [id number] Tee Walton MD [address] [facility], [address] [place] [address] [facility] [place] [facility] Start: 08-19-2023 Adult BMI Follow Up Plan Adult BMI Follow Up Plan [facility] Start: 02-06-2023 Influenza vaccination Influenza Vaccine [facility] Start: 10-08-2022 DTaP,Tdap and Td Vaccines (2 - Td or Tdap) DTaP,Tdap and Td Vaccines (2 - Td or Tdap) [facility] Start: 09-22-2019 Administration of varicella zoster vaccine Zoster (Shingles) Vaccine (1 of 2) [facility] Start: 02-12-2019 Screening for malignant neoplasm of breast Mammogram [facility] Immunizations Immunization Date Immunization Notes Care Provider Fa cility 11-24-2023 tetanus toxoid, redu inés diphtheria toxoid, and acellular pertussis vaccine, adsorbed Tee Walton MD Work Phone: [facility] 10-08-2012 tetanus toxoid, redu inés diphtheria toxoid, and acellular pertussis vaccine, adsorbed Kirstin Wiggins [facility] Payers Date Payer Category Payer Private Health Insurance [facility] [id number] 2023 Unknown [id number] 2018 Unknown [id number] 2018 Private Health Insurance [id number] 2017 Unknown [id number] 2014 Unknown [id number] 2010 Self-pay [id number] 1970 Unknown [id number] 1970 Unknown [id number] 1970 Unknown [id number] 1970 Unknown [id number] 1970 Unknown [id number] Social History Date Type Detail Facility Start: 02-20-2023 Tobacco smoking stat [facility] Ex-smoker [facility] History of tobacco use Current smoker [facility] Start: 02-20-2023 Tobacco use and exposure Smokeless tobacco non-user [facility] Start: 03-23-2023 End: 04-20-2024 Alcohol intake Current non-drinker of alcohol (finding) [facility] Start: 06-19-2020 End: 03-23-2023 History of Social function [facility] Start: 06-19-2020 End: 03-23-2023 Tobacco use panel [facility] Adolescent depressio n screening assessment 0 [facility] Start: 1970 Sex Assigned At Female P [facility] Start: 07-07-2022 Gender identity Identifies as female gender (finding) [facility] Start: 07-07-2022 Sexual orientation Heterosexual (fin ding) [facility] Start: 01-09-2015 Sex Female (finding) [facility] History of Present illness Narrative 04-20-2024 Tee Walton MD - 04/20/2024 10:45 AM EST Note Date & Type Note Facility 04-20-2024 History of Presen t illness Narrative SUBJECTIVE: PATIENT ID: Shari Lau is a 53 y.o. female. Cough This is a new problem. Episode onset: 2-3 weeks. The problem has been unchanged. The cough is Non-productive. Associated symptoms include ear congestion, ear pain, postnasal drip and rhinorrhea. Pertinent negatives include no chills, fever, nasal congestion, sore throat, shortness of breath or wheezing. Nothing aggravates the symptoms. Breathing is stable minimal use of albuterol. HTN is chronic and controlled. Doing well in the current medications. Diastolic at own readings are in the 80s. Insomnia is chronic recurrent and tx with trazodone as needed most of the time. Currently treated with Desyrel 50-100 mg nightly. No issues otherwise does also take muscle relaxers which has some added impact supposedly Chronic persistent lower back pain is improved when using muscle relaxants. Does not want to take more than ibuprofen. Has tried longer-acting medications without improved efficacy so continues ibuprofen. Regular fluid use. Review of Systems Constitutional: Positive for activity change. Negative for appetite change, chills, diaphoresis and fever. HENT: Positive for congestion, ear pain, postnasal drip and rhinorrhea. Negative for sore throat. Respiratory: Positive for cough. Negative for shortness of breath and wheezing. Allergies Allergen Reactions Penicillins Anaphylaxis Codeine Vomiting Dicloxacillin Sodium Morphine Hives Current Outpatient Medications on File Prior to Visit Medication Sig Dispense Refill albuterol (PROVENTIL HFA;VENTOLIN HFA) 90 mcg/actuation inhaler Inhale 1 puff every 6 (six) hours as needed for wheezing. 18 g 0 chlorthalidone (HYGROTON) 25 mg tablet Take 1 tablet (25 mg total) by mouth daily. 90 tablet 3 fluticasone propionate (FLONASE) 50 mcg/actuation nasal spray Administer 1 spray into each nostril in the morning. 16 g 0 ibuprofen (MOTRIN) 800 mg tablet Take 1 tablet (800 mg total) by mouth 3 (three) times a day. 21 tablet 0 tiZANidine (ZANAFLEX) 4 mg tablet Take 1 tablet (4 mg total) by mouth every 8 (eight) hours as needed for muscle spasms. 90 tablet 2 No current facility-administered medications on file prior to visit. OBJECTIVE: BP (!) 144/92 Temp 36.8 C (98.3 F) (Oral) Resp 21 Wt 91.2 kg (201 lb) SpO2 98% BMI 35.88 kg/m Physical Exam Vitals and nursing note reviewed. Constitutional: General: She is not in acute distress. Appearance: She is well-developed. She is not ill-appearing or diaphoretic. HENT: Head: Normocephalic and atraumatic. Right Ear: Tympanic membrane, ear canal and external ear normal. Left Ear: Tympanic membrane, ear canal and external ear normal. Mouth/Throat: Pharynx: No oropharyngeal exudate. Eyes: General: Right eye: No discharge. Left eye: No discharge. Conjunctiva/sclera: Conjunctivae normal. Neck: Thyroid: No thyromegaly. Trachea: No tracheal deviation. Cardiovascular: Rate and Rhythm: Regular rhythm. Heart sounds: Normal heart sounds. No murmur heard. Pulmonary: Effort: Pulmonary effort is normal. No respiratory distress. Breath sounds: Normal breath sounds. No wheezing or rales. Musculoskeletal: Cervical back: Normal range of motion and neck supple. Lymphadenopathy: Cervical: No cervical adenopathy. Skin: Findings: No rash. Neurological: Mental Status: She is alert. Psychiatric: Mood and Affect: Mood normal. Behavior: Behavior normal. ASSESSMENT AND PLAN: Problem List Items Addressed This Visit Unprioritized Chronic bilateral low back pain with bilateral sciatica Essential hypertension Migraine with aura and without status migrainosus, not intractable - Primary Relevant Medications traZODone (DESYREL) 100 mg tablet ofdngesvxt-gnnivgwokshiw-pvej (FIORICET, ESGIC) 50-325-40 mg per tablet Moderate persistent asthma without complication Other Visit Diagnoses Acute non-recurrent maxillary sinusitis New Medications Ordered This Visit Medications doxycycline (MONODOX) 100 mg capsule Sig: Take 1 capsule (100 mg total) by mouth in the morning and 1 capsule (100 mg total) before bedtime. Do all this for 10 days. Dispense: 20 capsule Refill: 0 traZODone (DESYREL) 100 mg tablet Sig: TAKE ONE HALF TABLET BY MOUTH EVERY EVENING Dispense: 90 tablet Refill: 2 luofbjvrjm-bpzhqqzpubpgg-usbm (FIORICET, ESGIC) 50-325-40 mg per tablet Sig: Take 1 tablet by mouth in the morning. Dispense: 30 tablet Refill: 2 levocetirizine (XYZAL) 5 mg tablet Sig: Take 1 tablet (5 mg total) by mouth nightly. Dispense: 30 tablet Refill: 0 Medications Discontinued During This Encounter Medication Reason doxycycline (MONODOX) 100 mg capsule doxycycline (MONODOX) 100 mg capsule traZODone (DESYREL) 100 mg tablet Reorder traZODone (DESYREL) 100 mg tablet Reorder jiofppcqkr-xxgbmxzeaxtnh-hgje (FIORICET, ESGIC) 50-325-40 mg per tablet Reorder documented in this encounter [facility] Note 07-23-2023 Telephone Encounter - Kirstin Wiggins CMA - 07/23/2023 1:13 PM ESTAddendum Note - Tee Walton MD - 07/23/2023 1:13 PM EST Note Date & Type Note Facility 07-23-2023 Miscellaneous Notes Formattin g of this note might be different from the original. Please send to [facility] in [place] Addended by: TEE WALTON on: 07/24/2023 01:09 PM Modules accepted: Orders documented in this encounter [facility] Clinical Note 07-23-2023 Addendum Note - Tee Walton MD - 07/23/2023 1:13 PM EST Note Date & Type Note Facility 07-23-2023 Note Addended by: TEE WALTON on: 07/24/2023 01:09 PM Modules accepted: Orders [facility] Telephone encounter Note 07-23-2023 Telephone Encounter - Kirstin Wiggins CMA - 07/23/2023 1:13 PM EST Note Date & Type Note Facility 07-23-2023 Telephone encount er Note Please send to [facility] [place] [facility] Clinical Note 11-22-2020 Note Date & Type Note Facility 11-22-2020 Note PROCEDURE: CT-HEAD W /O CONTRAST DATE OF EXAM: 11/22/2020 3:11 PM DEMOGRAPHICS: 50 years old Female INDICATION: Mental status change, unknown cause History: Mental status change, unknown cause. Number of Series/Images: 4. COMPARISON: No existing relevant imaging study corresponding to the same anatomical region is available. TECHNIQUE: Contiguous axial slices of the head were submitted without IV contrast. DOSE OPTIMIZATION: CT radiation dose optimization techniques (automated exposure control, and use of iterative reconstruction techniques, or adjustment of the mA and/or kV according to patient size) were used to limit patient radiation dose. FINDINGS: Ventricles, cisterns and sulci are within normal limits. There is no hydrocephalus or atrophy. There is no acute intra-axial or extra-axial hemorrhage, parenchymal edema, mass effect or midline shift. The paranasal sinuses and mastoid air cells are clear. The calvarium is intact. IMPRESSION: IMPRESSION: 1. No evidence for acute intracranial findings. There is no evidence for hemorrhage, mass effect, or acute large territory infarct. This dictation was created with voice recognition software. While attempts have been made to review the dictation as it is transcribed, on occasion the spoken word can be misinterpreted by the technology leading to omissions or inappropriate words, phrases or sentences. Electronically Signed by: Lissa Dallas, 11/22/2020 3:12 PM 7 - Indicated [facility] Evaluation note Note Date & Type Note Facility Evaluation note Diagnosis Migraine with aura and without status migrainosus, not intractable- Primary Acute non-recurrent maxillary sinusitis Moderate persistent asthma without complication Essential hypertension Unspecified essential hypertension Chronic bilateral low back pain with bilateral sciatica documented in this encounter [facility] Evaluation note Note Date & Type Note Facility Evaluation note Diagnosis Fibromyalgia Unspecified myalgia and myositis documented in this encounter [facility] Instructions Note Date & Type Note Facility Instructions Not on filedocumented in this en counter [facility] Instructions Note Date & Type Note Facility Instructions Not on filedocumented in this en counter [facility] Instructions Note Date & Type Note Facility Instructions Not on filedocumented in this en counter [facility] Summary Purpose Family History No Family History Records FoundNo Family History Records FoundNo Family History Records FoundNo Family History Records FoundNo Family History Records Found Advance Directives No Advanced Directives Records FoundNo Advanced Directives Records FoundNo Advanced Directives Records FoundNo Advanced Directives Records FoundNo Advanced Directives Records Found Additional Source Comments INFORMATION SOURCE (unrecogn ized section and content) DATE CREATED AUTHOR 02/10/2018 [facility] DATE CREATED AUTHOR AUTHOR'S ORGANIZ ATION 03/06/2020 [facility] DATE CREATED AUTHOR AUTHOR'S ORGANIZ ATION 01/17/2021 [facility] DATE CREATED AUTHOR AUTHOR'S ORGANIZ ATION 11/26/2023 [facility] DATE CREATED AUTHOR AUTHOR'S ORGANIZ ATION 04/22/2024 [facility] Reason for Visit (unrecogniz ed section and content) Reason Onset Date Comments Med Refill 07/23/2023 Reason Comments Cough Drainage Fever Sore Throat Earache Left ear Reason Onset Date Comments Med Refill 06/03/2024 Care Teams (unrecognized sec tion and content) [employer]chandise Executive Relationship Specialty Start Date End Date Tee Walton MD [address] [place] [address], [address] [place] [address] PCP - General Family Medicine 06/15/18 [employer] Executive Relationship Specialty Start Date End Date Tee Walton MD [address] [place] [address] Road, [address] [place] [address] PCP - General Family Medicine 06/15/18 Merchandise Executive Relationship Specialty Start Date End Date Tee Walton MD [address] [place] [address], [address] [place], [place] [id number] PCP - General Family Medicine 06/15/18 FOR RECORDS PERTAINING TO PATIENTS WHO ARE OR HAVE BEEN ENROLLED IN A CHEMICAL DEPENDENCY/SUBSTANCEABUSE PROGRAM, SOME INFORMATION MAY BE OMITTED. This clinical summary was aggregated from multiple sources. Caution should be exercised in using it in the provision of clinical care. This summary normalizes information from multiple sources, and as a consequence, information in this document may materially change the coding, format and clinical context of patient data. In addition, data may be omitted in some cases. CLINICAL DECISIONS SHOULD BE BASED ON THE PRIMARY CLINICAL RECORDS. [employer] [facility]. provides no warranty or guarantee of the accuracy or completeness of information in this document.
[2024-07-21 19:08] VITALS: BP 174/81; PULSE 108; TEMP 36.8; O2SAT 95; BMI 35.3
[2024-07-21 19:31] LABS: Bilirubin Urine NEGATIVE (NEGATIVE); Blood Urine TRACE-L (NEGATIVE); Clarity Urine CLEAR (CLEAR); Color Urine LT. YELLOW (YELLOW); Glucose Urine UA NEGATIVE (NEGATIVE); Ketones Urine NEGATIVE (NEGATIVE); Leukocyte Esterase Urine NEGATIVE (NEGATIVE); Nitrite Urine NEGATIVE (NEGATIVE); Protein Urine NEGATIVE (NEG/TRACE); Urobilinogen Urine 0.2 EU/dL (0.2-1.0)
[2024-07-21 19:35] LABS: Bacteria Urine TRACE #/HPF (NONE SEEN); Crystals Seen? None Seen #/HPF (None Seen); Mucus Urine NONE SEEN (NONE SEEN); RBC Urine 0-2 #/HPF (0-2); Squamous Epithelial Cell Urine FEW #/LPF (NONE/RARE); WBC Urine 0-2 #/HPF (NONE SEEN)
[2024-07-21 19:36] LABS: Cast Seen? NONE SEEN #/LPF (NONE SEEN)
[2024-07-21 19:38] LABS: Influenza Virus A Antigen Negative; Influenza Virus B Antigen Negative; Internal Control Within Normal Limits
[2024-07-21 19:39] LABS: Internal Control Within Normal Limits; SARS-CoV-2 Ag NEGATIVE (NEGATIVE)
--- NOTE | 2024-07-21 19:49 | PC.NURSE ---
complains of sinus pain and increased urination onset 1 week ago. this patient voices no concerns and shows no signs of distress
[2024-07-21] MEDS: DOXYCYCLINE MONOHYDRATE 100 MG CAPSULE PO (20:17)
[2024-07-21] MEDS: IBUPROFEN 600 MG TABLET PO (20:17)
--- NOTE | 2024-07-21 20:20 | ED.URI1 ---
HPI - URI/Sore Throat General Chief Complaint: Upper Respiratory Infection Stated Complaint: POSS SINUS INFECTION, POSS UTI Time Seen by Provider: 07/21/24 19:49 Source: patient History of Present Illness HPI Narrative: This 53-year-old female presents for evaluation of several weeks of upper respiratory symptoms and has now developed pain in her teeth with yellow-brown nasal drainage and frontal sinus pain with occasional headaches. She denies any neck pain or stiffness. She has not recently had a fever. She has no chest pain or shortness of breath. She does have an occasional cough that she feels that is from drainage running down her sinuses. She also has foul-smelling urine and low back pain. She has a history of kidney stones. She denies any flank pain or vomiting at this time. 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 Related Data Home Medications ?Medication ?Instructions ?Recorded ?Confirmed ncskewysns-ygefvukpbbfpl-cqsmlhmt 1 tab PO DAILY 02/12/24 02/12/24 50 mg-325 mg-40 mg tablet trazodone 100 mg tablet 100 mg PO DAILY 02/12/24 02/12/24 Previous Rx's ?Medication ?Instructions ?Recorded naproxen sodium 550 mg tablet 550 mg PO BID PRN pain #10 tabs 05/02/23 tizanidine 4 mg capsule 4 mg PO Q8H PRN muscle spasm #20 05/02/23 caps Allergies Allergy/AdvReac Type Severity Reaction Status Date / Time codeine Allergy Severe Vomiting Verified 07/21/24 19:13 morphine Allergy Severe Hives Verified 07/21/24 19:13 Penicillins Allergy Severe Anaphylaxis Verified 07/21/24 19:13 Review of Systems ROS Status of ROS 10 or more systems reviewed and unremarkable except as noted in history and below [facility] Medical History (Updated 07/21/24 @ 20:12 by Yeni Sorenson MD) Migraine ?G43.909 - Migraine, unspecified, not intractable, without status migrainosus (ICD-10) Asthma ?J45.909 - Unspecified asthma, uncomplicated (ICD-10) FH: cholecystectomy ?Z83.79 - Family history of other diseases of the digestive system (ICD-10) Spinal stenosis ?M48.00 - Spinal stenosis, site unspecified (ICD-10) Fibromyalgia ?M79.7 - Fibromyalgia (ICD-10) Surgical History (Updated 07/21/24 @ 19:15 by Wei Sheets) H/O: hysterectomy ?Z90.710 - Acquired absence of both cervix and uterus (ICD-10) Social History Little interest or pleasure in doing things: not at all Feeling down, depressed, or hopeless: not at all Exam Narrative Exam Narrative: Vital signs and Nursing Notes reviewed: Patient is afebrile, mildly tachycardic with a pulse of 108, blood pressure is elevated at 174/81, she is not hypoxic with pulse ox of 95% on room air General: Awake, alert, oriented, no acute distress, lying comfortably on the stretcher HEENT: Normocephalic atraumatic, mucous membranes are moist and pink, eyes are clear, normal conjunctiva, vision is grossly intact, Tympanic membranes are normal bilaterally, posterior pharyngeal cobblestoning is noted, there is tenderness over the frontal and maxillary sinuses Neck: Supple, no meningeal signs, no anterior or posterior cervical lymphadenopathy Chest: Lungs are clear to auscultation with good air entry, there is no wheezing rhonchi or rales appreciated no accessory muscle use, patient is speaking in complete sentences-no chest wall tenderness to palpation CVS: Regular rate and rhythm S1-S2, no murmurs rubs or gallops, pulses are brisk and equal bilaterally ABD: Soft, nondistended, nontender, no rebound guarding or rigidity, bowel sounds are normal, no pulsatile masses appreciated, no CVA tenderness Extremities: Moving all extremities, no lower extremity tenderness or swelling noted Skin: Normal in appearance without rash,pallor, petechiae or purpura Neuro: No focal deficits Constitutional Vital Signs, click to edit/add: Last Vital Signs Temp 98.2 F 07/21/24 19:08 Pulse 108 H 07/21/24 19:08 Resp 18 07/21/24 19:08 BP 174/81 H 07/21/24 19:08 Pulse Ox 95 07/21/24 19:08 O2 Del Method Room Air 07/21/24 19:08 Course Vital Signs Vital signs: Vital Signs Temperature 98.2 F 07/21/24 19:08 Pulse Rate 108 H 02/13/25 19:08 Respiratory Rate 18 07/21/24 19:08 Blood Pressure 174/81 H 07/21/24 19:08 Pulse Oximetry 95 07/21/24 19:08 Oxygen Delivery Method Room Air 07/21/24 19:08 Temperature 98.2 F 07/21/24 19:08 Pulse Rate 108 H 07/21/24 19:08 Respiratory Rate 18 07/21/24 19:08 Blood Pressure 174/81 H 07/21/24 19:08 Pulse Oximetry 95 07/21/24 19:08 Oxygen Delivery Method Room Air 07/21/24 19:08 MDM - URI/Sore Throat MDM Narrative Medical decision making narrative: This 53-year-old female presents for evaluation of urinary symptoms of frequency and foul-smelling urine with intermittent flank pain. She does have a history of kidney stones. She is not having any nausea or vomiting. She does not have any flank pain at this time. She also has complaints of sinus symptoms with frontal and maxillary discomfort going into her teeth and yellow-brown nasal drainage. Her vital signs are stable with the exception of an elevated blood pressure and mild tachycardia. Her lungs are clear, abdomen is soft. There is no flank tenderness. HEENT exam is benign with some posterior pharyngeal cobblestoning and tenderness over the sinuses. He is negative for COVID-19 and influenza. Urine testing does not show any sign of acute infection. She was medicated with a dose of ibuprofen and doxycycline in the emergency department and will be discharged home with a prescription for doxycycline and ibuprofen. She also requests a note for work. Lab Data Labs: Lab Results 07/21/24 Range/Units 19:15 Urine Color Lt. yellow (YELLOW) Urine Clarity Clear (CLEAR) Urine pH 6.0 (5.0-9.0) Ur Specific [place] 1.020 (1.005-1.025) Urine Protein Negative (NEG/TRACE) mg/dL Urine Glucose (UA) Negative (NEGATIVE) mg/dL Urine Ketones Negative (NEGATIVE) mg/dL Urine Occult Blood Trace-l (NEGATIVE) Urine Nitrite Negative (NEGATIVE) Urine Bilirubin Negative (NEGATIVE) Urine Urobilinogen 0.2 (0.2-1.0) EU/dL Ur Leukocyte Esterase Negative (NEGATIVE) Urine RBC 0-2 (0-2) #/HPF Urine WBC 0-2 A (NONE SEEN) #/HPF Ur Squamous Epith Cells Few A (NONE/RARE) #/LPF Urine Crystals None seen (None Seen) #/HPF Urine Bacteria Trace A (NONE SEEN) #/HPF Urine Casts None seen (NONE SEEN) #/LPF Urine Mucus None seen (NONE SEEN) Influenza Type A Ag Negative Influenza Type B Ag Negative SARS-CoV-2 Ag (CV2AG) Negative (NEGATIVE) Discharge Plan Discharge Chief Complaint: Upper Respiratory Infection Clinical Impression: Sinusitis Patient Disposition: Home, Self-Care Time of Disposition Decision: 20:12 Condition: Good Prescriptions / Home Meds: No Action tizanidine 4 mg capsule 4 mg PO Q8H PRN (Reason: muscle spasm) Qty: 20 0RF Rx Instructions: do not exceed 3 doses per 24 hrs naproxen sodium 550 mg tablet 550 mg PO BID PRN (Reason: pain) Qty: 10 0RF wgnjnohpfl-lhvaslduxpmho-fwcq 50-325-40 mg tablet 1 tab PO DAILY trazodone 100 mg tablet 100 mg PO DAILY Print Language: Lithuanian Instructions: Sinusitis (ED) Referrals: Physician,Non-Staff, MD [Primary Care Provider] - 1 week Discharge Date/Time: 07/21/24 20:21
--- NOTE | 2024-07-21 20:20 | PC.NURSE ---
i gave this patient verbal and written discharge orders along with 2 Rx and 1 work note, and this patient voices yes to understanding these. at time of discharge this patient voices no concerns and shows no signs of distress
== END 2024-07-21 20:21 | disposition home or self-care (01) ==
PROVIDERS: Emergency Provider Emergency Medicine
DX: J32.9 Chronic sinusitis, unspecified (principal); Z87.442 Personal history of urinary calculi; Z90.710 Acquired absence of both cervix and uterus; R82.998 Other abnormal findings in urine
CPT/HCPCS: 81001; 87804; 87811; 99285